=== PATIENT | female | born 1980 | race Caucasian/White ===

== ENCOUNTER 2020-09-12 08:18 | Outpatient (REF) | payer MEDICAID, SELFPAY ==
--- NOTE | 2020-09-12 08:24 | EMG_ITS ---
Bilateral median and ulnar motor and sensory studies were performed. Bilateral radial sensory studies were performed and paraspinal muscles were tested with a needle. 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 MD PAIGE Tovar/ANASTASIA / [phone]
== END 2020-09-12 08:19 | disposition home or self-care (01) ==
LOC: HO.NEURO 08:18
PROVIDERS: PCP Internal Medicine; Visit Provider Internal Medicine
DX: G56.03 Carpal tunnel syndrome, bilateral upper limbs (principal)
CPT/HCPCS: 95860; 95886; 95911

== ENCOUNTER → 2020-11-20 11:20 | Outpatient (BNVA) | payer MEDICAID, SELFPAY | PROVIDERS: Visit Provider Orthopaedic Surgery | DX: G56.02 Carpal tunnel syndrome, left upper limb (principal); G56.01 Carpal tunnel syndrome, right upper limb | CPT/HCPCS: 99202 ==

== ENCOUNTER 2020-12-17 12:50 | Day surgery (SDC) | payer MEDICAID, SELFPAY ==
[2020-12-17 12:59] VITALS: BP 108/79; PULSE 88; RESP 16; TEMP 36.8; O2SAT 99
[2020-12-17 13:00] VITALS: BMI 23.3
[2020-12-17 14:40] VITALS: BP 110/72; PULSE 85; RESP 18; TEMP 36.5; O2SAT 96
--- NOTE | 2020-12-17 14:43 | MHC.SHP ---
Pre-Procedural Eval Section A Date of Service: 12/17/20 Section B Chief Complaint: carpal tunnel Allergies: Allergies Allergy/AdvReac Type Severity Reaction Status Date / Time penicillin V Allergy Unknown breathing Verified 11/20/20 11:49 problems and rash Penicillins [PENICILLINS] Allergy Unknown RASH Verified 11/20/20 11:49 Plan I have reviewed the history and physical and performed a pertinent physical examination on my patient. No changes have occurred unless specified.
--- NOTE | 2020-12-17 14:43 | W.PM.OPN ---
Operative Note Operative Note Date of Service: 12/17/20 Narrative: Preop diagnosis: 1. left Carpal tunnel syndrome Postop diagnosis: same Procedure: 1. left Carpal tunnel release Surgeon: Shelly Dangelo MD Anesthesia: local block using 1% lidocaine with epinephrine Findings: Thickened transverse carpal ligament. EBL: Less than 5 mL Specimens: None Complications: None Disposition: Brought to recovery room in stable condition Plan: Follow-up for 7-10 days for wound check and suture removal Indications: The patient is 40 years old, with left carpal tunnel syndrome that has been unresponsive to nonoperative management. The risks and benefits of operative treatment including but not limited to risk of damage to blood vessels, nerves, tendons, infection, persistent pain, persistent symptoms, or possible need for additional surgery were discussed with the patient and the patient wishes to proceed with surgery. Procedure: Once consent was obtained a local block was performed using a combination of 1% lidocaine with epinephrine. The patient was then brought back to the operating suite and placed on the operative table in supine position. A tourniquet was applied to the proximal aspect of the left upper extremity and the limb was prepped and draped in a standard surgical fashion. Once assured that we had a good block, a 1.5 cm longitudinal incision was made centered over the carpal tunnel. The incision was made through the skin to the subcutaneous tissues using a #15 blade. Dissection was made down to the level of the transverse carpal ligament with care being taken to protect the palmar cutaneous nerve. Once the transverse carpal ligament was clearly visualized, a longitudinal incision was made in the transverse carpal ligament 1st using a #15 blade, then using tenotomy scissors under direct visualization. Care was taken to look for and protect the motor branch of the median nerve when seen in this area. Once satisfied with our carpal tunnel release the wound was copiously irrigated with normal saline and hemostasis was obtained with a brief period of local pressure. The skin edges were reapproximated with some 5.0 nylon suture material and a sterile dressing was applied. The patient appears to have tolerated the procedure well and with no complications. All digits were well vascularized at the conclusion of the case.[email or web address]
== END 2020-12-17 14:53 | disposition home or self-care (01) ==
PROVIDERS: Visit Provider Orthopaedic Surgery
PROC: (CPT 64721; principal; 2020-12-17 14:30)
DX: G56.02 Carpal tunnel syndrome, left upper limb (principal); I10 Essential (primary) hypertension; F41.9 Anxiety disorder, unspecified; F17.210 Nicotine dependence, cigarettes, uncomplicated; Z88.0 Allergy status to penicillin
CPT/HCPCS: 64721

== ENCOUNTER → 2021-01-01 12:48 | Outpatient (BNVA) | payer MEDICAID, SELFPAY | PROVIDERS: Visit Provider Orthopaedic Surgery | DX: G56.03 Carpal tunnel syndrome, bilateral upper limbs (principal) | CPT/HCPCS: 99212 ==

== ENCOUNTER 2021-12-11 14:16 | Outpatient (REF) | payer MEDICAID, SELFPAY ==
[2021-12-18 06:46] LABS: HPV mRNA E6/E7 rflx Not Detected (Not Detected)
== END 2021-12-11 14:17 | disposition home or self-care (01) ==
LOC: HO.LAB 14:16
PROVIDERS: Visit Provider Obstetrics & Gynecology
DX: Z01.419 Encounter for gynecological examination (general) (routine) without abnormal findings (principal); Z11.51 Encounter for screening for human papillomavirus (HPV)
CPT/HCPCS: 87624; 88142

== ENCOUNTER 2021-12-29 14:51 | Outpatient (REF) | payer MEDICAID, SELFPAY ==
--- NOTE | ~2021-12-29 | MM_ITS ---
EXAMINATION: MM DIAGNOSTIC DIGITAL BREAST TOMOSYNTHESIS, BILATERAL US DIAGNOSTIC ULTRASOUND BREAST, RIGHT CLINICAL INFORMATION: 41-year-old with right mastodynia and pea-sized palpable area for approximately 7 months. No prior breast imaging. Family history breast cancer, paternal aunt. The lifetime risk of breast cancer based on the Tyrer-Cuzick Model is 14%. COMPARISON: None (current study represents initial baseline exam). TECHNIQUE: Digital breast tomosynthesis is performed in both the craniocaudal and mediolateral oblique views along with computer-aided detection (CAD). Synthesized 2D images are generated from the tomosynthesis. Ultrasound right breast is targeted to the areas of clinical concern. Patient is able to point to the areas at time of imaging. Grayscale imaging and color Doppler are performed without and with harmonics. FINDINGS: There are scattered areas of fibroglandular density (ACR BI-RADS breast composition Category b). There is no mammographic correlate for patient's symptoms. No significant mass or architectural abnormality. No skin thickening or coarsening of the Ye's ligaments. No abnormal calcifications. The axilla are unremarkable. Skin contours are smooth. Ultrasound demonstrates no cystic or solid mass, architectural abnormality, or focal duct ectasia. No skin thickening, intradermal lesion, or edema tracking in soft tissue planes. Results are discussed with the patient at time of visit. MM/MM tomosynthesis diagnostic BI IMPRESSION: -No mammographic evidence of malignancy or inflammatory changes. -Unremarkable targeted right breast ultrasound. ASSESSMENT: BI-RADS 1: Negative RECOMMENDATION: 1. Patient should be managed based on the clinical impression. If clinically indicated, further evaluation may be considered with surgical consult. Decision to proceed with biopsy should be based on clinical grounds and degree of clinical concern. 2. Otherwise, routine annual screening mammography. This patient's information was entered into a reminder system with a target due date for their next mammogram.
== END 2021-12-29 14:52 | disposition home or self-care (01) ==
LOC: HO.MAMMO 14:51
PROVIDERS: Visit Provider Obstetrics & Gynecology
DX: N63.11 Unspecified lump in the right breast, upper outer quadrant (principal)
CPT/HCPCS: 76642; 77062; 77066

== ENCOUNTER 2023-01-14 15:55 | Outpatient (REF) | payer MEDICAID, SELFPAY ==
[2023-01-14 18:42] LABS: HCG Quantitative < 2 mIU/mL
== END 2023-01-14 15:56 | disposition home or self-care (01) ==
LOC: HO.CHCLDS 15:55
PROVIDERS: Visit Provider Pediatrics
DX: N92.6 Irregular menstruation, unspecified (principal)
CPT/HCPCS: 36415; 84702

== ENCOUNTER 2024-04-18 14:54 | Outpatient (REF) | payer MEDICAID, SELFPAY ==
[2024-04-20 08:07] LABS: ~HepC Num1 0.09 S/CO (0.00-0.79); ~Hepatitis C Antibody Nonreactive (Nonreactive)
== END 2024-04-18 14:55 | disposition home or self-care (01) ==
LOC: HO.CHCLDS 14:54
PROVIDERS: Visit Provider Internal Medicine
DX: L43.9 Lichen planus, unspecified (principal)
CPT/HCPCS: 36415; 86803

== ENCOUNTER 2024-10-03 15:09 | Outpatient (REF) | payer MEDICAID, SELFPAY ==
[2024-10-03 16:07] LABS: Appearance Urine Clear; Color Urine Yellow; Glucose Urine UA Negative (Negative); Leukocyte Esterase Urine Negative (Negative); Nitrite Urine Negative (Negative); Specific Gravity - Urine 1.015 (1.005-1.025); Urine Blood Negative (Negative); Urine Ketones Negative (Negative); Urine Protein Negative (Neg-Trace)
[2024-10-03 16:09] LABS: MANUAL DIFF FLAG NO
[2024-10-03 16:12] LABS: Bacteria Urine None Seen (None Seen); Hyaline Casts Urine 0-2 /LPF (0-2); RBC Urine 0-2 /HPF (0-2); Squamous Epithelial Cell Urine 0-2 /HPF (0-2); WBC Urine 0-5 /HPF (0-5)
[2024-10-03 16:29] LABS: Basophils Absolute Auto 0.1 X10*3/uL (0.0-0.2); Basophils Percent Auto 1.9 % (0-2); Eosinophils Absolute Auto 0.2 X10*3/uL (0.0-0.4); Eosinophils Percent Auto 4.1 % (0-4); Hematocrit 32.7 % (37.0-47.0); Hemoglobin 10.8 g/dl (12.0-16.0); Imm Gran Abs Auto 0.02 X10*3/uL (0.00-0.03); Imm Gran Pct Auto 0.4 % (0.0-0.4); Lymphocytes Absolute Auto 1.7 X10*3/uL (1.2-4.9); Lymphocytes Percent Auto 33.6 % (20-40); Mean Corpuscular Hemoglobin 28.2 pg (27.0-33.0); Mean Corpuscular Volume 85.4 fL (80.0-98.0); Mean Platelet Volume 9.9 fL (9.4-12.3); Monocytes Absolute Auto 0.3 X10*3/uL (0.1-1.2); Monocytes Percent Auto 6.4 % (2-11); Neutrophils Absolute Auto 2.8 x10*3/uL (2.0-8.3); Neutrophils Percent Auto 53.6 % (45-73); Platelet Count 353 X10*3/uL (160-400); Red Blood Count 3.83 X10*6/uL (4.20-5.50); Red Cell Distribution Width 13.2 % (11.0-16.0); White Blood Count 5.2 X10*3/uL (4.8-10.8)
[2024-10-03 16:32] LABS: Estimated Average Glucose 103 mg/dL; Hemoglobin A1C 95.7065 umol/L; Hemoglobin A1c % 5.2 % (<6.0); Total Hemoglobin (HGBA1C) 2868.7908 umol/L
[2024-10-03 17:10] LABS: Rheumatoid Factor < 13.0 IU/mL (<15.0)
[2024-10-03 17:49] LABS: Anion Gap 10 (12-20); Blood Urea Nitrogen 14 mg/dL (9-16); Calcium 8.5 mg/dL (8.4-10.2); Carbon Dioxide 23 mmol/L (22-29); Chloride 110 mmol/L (96-108); Estimated Glomerular Filt Rate 55; Glucose Random 89 mg/dL (60-115); Potassium 3.8 mmol/L (3.3-5.1); Sodium 139 mmol/L (135-145)
[2024-10-03 18:11] LABS: HCG Quantitative < 2 mIU/mL; TSH reflex Free T4 1.13 uIU/mL (0.32-4.0)
--- OUTSIDE RECORDS SUMMARY | 2024-10-03 18:28 | XMS_ITS | Encounter Summary ---
Author Organization [employer] Address [address] [facility] [address] [place] [address] Care Team Providers Care Assistant Maintenance Manager Name Role Phone Scott Sánchez MD Primary Care Prov ider Reason for Visit * Reason Onset Date Comments Nurse Triage 06/27/2024 Encounter Details Date Type Department Care Team (Late st Contact Info) Description 06/27/2024 Telephone [facility] [address] [place] [address] Scott Sánchez MD [address] [place] [address] Nurse Triage Social History Tobacco Use Types Packs/Day Years Used Date Smoking Tobacco: Every Day Cigarettes 0.5 25 Passive Smoke Exposure: Current Smokeless Tobacco: Never Alcohol Use Standard Drinks/Week Comments Not Currently 0 (1 standard drink = 0.6 oz pur e alcohol) Depression Answer Date Recorded Patient Health Questionnaire-9 Score 17 08/24/2023 Patient Health Questionnaire-9 Score 17 08/24/2023 Last PHQ-9: Questionnaire Data Not on file 0 08/24/2023 Housing Stability Answer Date Recorded What is your housing situation today? I have fadi karen 04/09/[address] you li ve. Do you have problems with any of the following? None of the above 04/09/2023 Food Insecurity Answer Date Recorded Within the past 12 months, y ou worried that your food would run out before you got money to buy more: Never True 04/09/2023 Within the past 12 months,th e food you bought just didn't last and you didn't have enough money to get more: Never True Transportation Answer Date Recorded In the past 12 months, has l ack of transportation kept you from medical appts, meetings, work or from getting things needed for daily living? No 04/09/2023 Utilities Answer Date Recorded In the past 12 months, has t he electric, gas, oil or water company threatened to shut off services in your home? No 04/09/2023 Depression Answer Date Recorded Patient Health Questionnaire-2 Score 6 08/24/2023 Comments Unknown Sex and Gender Information Value Date Recorded Sex Assigned at Female 04/20/2022 10:29 AM EDT Legal Sex Female 10:29 AM EDT Gender Identity Female 04/20/2022 10:29 AM EDT Sexual Orientation Straight 04/20/2022 10 :29 AM EDT documented as of this encounter Miscellaneous Notes * Telephone Encounter - Kasia Gómez - 06/28/2024 11:56 AM EST Tc from pt returning call. 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 documented in this encounter Plan of Treatment Upcoming Encounters Date Type Department Care Team (Late st Contact Info) Description 11/07/2024 11:30 AM EDT Office Visit [facility] [address] [place] [address] Hill Elise MD [address] [place] [address] documented as of this encounter Visit Diagnoses Not on filedocumented in this encounter Additional Health Concerns Assessment Noted Time PHQ-9 Depression Total Score: 17 024 11:25 AM EST documented as of this encounter Care Teams Assistant Maintenance Manager Relationship Specialty Start Date End Date Scott Sánchez MD [address] [place] [phone] PCP - General Internal Medicine 11/19/19 documented as of this encounter
--- OUTSIDE RECORDS SUMMARY | 2024-10-03 18:28 | XMS_ITS | Encounter Summary ---
Author Organization [employer] Address [address] 7[address] [place] [address] Care Team Providers Care Stereotype Caster Name Role Phone Scott Sánchez MD Primary Care Prov ider Encounter Details Date Type Department Care Team (Late st Contact Info) Description 10/03/2024 2:40 PM EDT Office Visit [facility] [address] [place] [address] [phone] Kayla Hogan MD [address] [place], [place] [phone] Rash (Primary Dx) Social History Tobacco Use Types Packs/Day Years [...] your housing situation today? I have fadi jones 04/09/[address] you li [...] AM EDT documented as of this encounter Last Filed Vital Signs Vital Sign Reading Time Taken Comments Blood Pressure 123/79 10/03/2024 2:48 PM EDT Pulse 90 10/03/2024 2:48 PM EDT Temperature 36.2 ??C (97.1 ??F) 10/03/2024 2:48 PM ED T Respiratory Rate 19 10/03/2024 2:48 PM EDT Oxygen Saturation 98% 10/03/2024 2:48 PM EDT Inhaled Oxygen Concentration - - Weight 65.4 kg (144 lb 3.2 oz) 10/03/2024 2:48 P M EDT Height 165.1 cm (5' 5 ) 10/03/2024 2:48 PM EDT Body Mass Index 24 10/03/2024 2:48 PM EDT documented in this encounter Progress Notes * Kayla Hogan MD - 10/03/2024 2:40 PM EDT Images from the original note were not included. Subjective Patient ID: Myra Robles is a 44 y.o. female with past medical history of CTS and chronic back pain who presents to walk in clinic for No chief complaint on file.. Per note from 09/06/24, Patient saw [facility] D[facility] 03/2024 with suspected lichen planus versus nummular eczema. She was treated with Kenalog 0.1% ointment. Referred back to dermatology 09/07/23 Has appt. with Dermatology 11/07/24. Pt reports the cream she was prescribed (betamethasone dipropionate 0.05 % cream) was helping her rash was improving, but has gotten worse. She notes the rash started in 03/2024, and has gone away but keeps returning. Pt denies any hx of arthritis but says she feels like she has it now. Reports aches and pains in her bones. Review of Systems Constitutional: Negative for fatigue, fever and unexpected weight change. Respiratory: Negative for cough. Cardiovascular: Negative for chest pain. Gastrointestinal: Negative for abdominal pain. Genitourinary: Negative for difficulty urinating. Skin: Positive for rash. Objective Visit Vitals BP 123/79 Pulse 90 Temp 97.1 ??F (36.2 ??C) (Temporal) Resp 19 Ht 5' 5 (1.651 m) Wt 144 lb 3.2 oz (65.4 kg) SpO2 98% BMI 24.00 kg/m?? Smoking Status Every Day BSA 1.73 m?? Physical Exam Constitutional: Appearance: Normal appearance. Cardiovascular: Rate and Rhythm: Normal rate and regular rhythm. Heart sounds: Normal heart sounds. Pulmonary: Effort: Pulmonary effort is normal. Breath sounds: Normal breath sounds. Skin: Findings: Rash (Scattered papules, well demarcated. See image in chart.) present. Neurological: General: No focal deficit present. Mental Status: She is alert. Psychiatric: Behavior: Behavior normal. Problem List Items Addressed This Visit Rash - Primary Reoccurring rash since 03/2024. See image in chart. Has been treated with topical steroids that pt reports has helped, but this flare seems worse. Shared decision making will trial oral steroid. Discussed risks of steroid use. -Prescribed predniSONE (Deltasone) 20 MG Take 1 tablet (20 mg) by mouth 3 times daily for 3 days, THEN 1 tablet (20 mg) 2 times daily for 3 days, THEN 1 tablet (20 mg) Once per day for 3 days. 10/03/24 Relevant Medications predniSONE (Deltasone) 20 MG tablet Other Relevant Orders HIV-1/2 Antigen and Antibodies, Fourth Generation, with Reflexes RPR (Monitor) with Reflex to Titer Rheumatoid Factor VINCE Screen,IFA, with Reflex to Titer and Pattern -No evidence of acute disease process. Suspect lichen planus, nummular eczema, atypical psoriasis, arthritis, etc. Symptoms mild. -Will treat with short course of steroids. -ER precautions discussed. -Seek medical attention for worsening symptoms. I, Mis Claire, am serving as a scribe to document services personally performed by Dr. Griffith, based on the patient's response to questions by provider and providers statements to me. documented in this encounter Miscellaneous Notes * Assessment & Plan Note - Mis Claire - 10/03/2024 3:03 PM EDTAssociated Problem(s): Rash Reoccurring rash since 03/2024. See image in chart. Has been treated with topical steroids that pt reports has helped, but this flare seems worse. Shared decision making will trial oral steroid. Discussed risks of steroid use. -Prescribed predniSONE (Deltasone) 20 MG Take 1 tablet (20 mg) by mouth 3 times daily for 3 days, THEN 1 tablet (20 mg) 2 times daily for 3 days, THEN 1 tablet (20 mg) Once per day for 3 days. 10/03/24 documented in this encounter Plan of Treatment Upcoming Encounters Date Type Department Care Team (Late st Contact Info) Description 11/07/2024 11:30 AM EDT Office Visit [facility] MED [facility] PED[facility] [address] [place] [address] Hill Elise MD [address] [place] [address] Scheduled Orders Name Type Priority Associated Diagnoses Orde r Schedule HIV-1/2 Antigen and Antibodies, Fourth Generation, with Reflexes Lab Routine Rash Expected: 10/03/2024 (Approximate), Expires: 10/03/2025 RPR (Monitor) with Reflex to??Titer Lab Routine Rash Expected: 10/03/2024, Expires: 10/03/2025 VINCE Screen,IFA, with Reflex to Titer and Pattern Lab Routine Rash Expected: 10/03/2024 (Approximate), Expires: 10/03/2025 documented as of this encounter Procedures Procedure Name Priority Date/Time Associated Diagnosis Comments RHEUMATOID FACTOR Routine 10/03/2024 3:1 3 PM EDT Rash documented in this encounter Results * Rheumatoid Factor (10/03/2024 3:13 PM EDT) Rheumatoid Factor <13.0 <15.0 IU/mL [facility] Blood Venous blood specimen / Unknown 10/03/2024 3:13 PM EDT 10/03/2024 4:04 PM EDT us Kayla Hogan MD LAB BLOOD ORDERABLES Final Result [facility] [address] [place] [address] [phone] documented in this encounter Visit Diagnoses Diagnosis Rash- Primary Rash and other nonspecific skin eruption documented in this encounter Additional Health Concerns Assessment Noted Time PHQ-9 Depression Total Score: 17 024 11:25 AM EST documented as of this encounter Care Teams Stereotype Caster Relationship Specialty Start Date End Date Scott Sánchez MD [address] [place] [id number] PCP - General Internal Medicine 11/19/19 documented as of this encounter
--- OUTSIDE RECORDS SUMMARY | 2024-10-03 18:28 | XMS_ITS | Encounter Summary ---
Author Organization [employer] Address [address] [facility] [address] [place] [address] Care Team Providers Care Spud Driller Name Role Phone Scott Sánchez MD Primary Care Prov ider Reason for Visit * Reason Onset Date Comments Nurse Triage 05/29/2024 Encounter Details Date Type Department Care Team (Late st Contact Info) Description 05/29/2024 Telephone [facility] MED[facility] [address] [place] [address] Scott Sánchez MD [address] [place] [address] Nurse Triage Social History Tobacco Use Types [...] encounter Miscellaneous Notes * Telephone Encounter - Alexandria Carter RN - 05/29/2024 4:46 PM EST Triage call Pt reports wide spread rash. Pt was seen in office 04/15/24 for dx of lichen planus. Ptreports rash has spread to left arm, stomach, neck legs. Itchy, bumpy, red rash neg for drainage. Pt has used all triamcinalone 0.1% prescribed at visit. 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 ASK apt with Dr. Rosales 06/01/24 @ 930am. Insurance is verified as active prior to booking. Pt agreed with disposition. Protocol Used: Rash or Redness - Widespread (Adult) Protocol-Based Disposition: See in Office or Video Visit Today or Tomorrow Override (Final) Disposition: See in Office or Video Visit within 3 Days Override Reason: Other Video visit not offered Positive Triage Question: * Mild widespread rash (Exception: Heat rash lasting 3 days or less.) * All higher-acuity triage questions were negative Care Advice Discussed: * Reasons To Call Back - Rash becomes purple or blood-colored or blister-like - Fever occurs or severe itching - You become worse * Telephone Encounter - Preet Villarreal - 05/29/2024 4:28 PM EST Symptom: Rash or Redness - Widespread Outcome: Schedule a same-day appointment or talk to a nurse or provider today Reason: Caller denied all higher acuity questions The caller accepted this outcome. documented in this encounter Plan of Treatment Upcoming Encounters Date Type Department Care Team (Late st Contact Info) Description 11/07/2024 11:30 AM EDT Office Visit [facility] [address] [place] [address] Hill Elise MD [address] [place] [address] documented as of this encounter Visit Diagnoses Not on filedocumented in this encounter Additional Health Concerns Assessment Noted Time PHQ-9 Depression Total Score: 17 024 11:25 AM EST documented as of this encounter Care Teams Spud Driller Relationship Specialty Start Date End Date Scott Sánchez MD [address] [place] [address] PCP - General Internal Medicine 11/19/19 documented as of this encounter
--- OUTSIDE RECORDS SUMMARY | 2024-10-03 18:28 | XMS_ITS | Clinical Summary ---
Author Organization [facility] Address [address] [place] [address] Phone Care Team Providers Care Contracts Attorney Name Role Phone [employer] Primary Care Provider [phone] [facility] Unavailable [phone] Reason for Visit and Chief Complaint Established Patient Plan of Treatment Pending Tests Order Diagnosis Results Due Ordering P rovider Follow Up - Return to School / Work Note Buffy Wooten PA-C Last Documented On 3 9:08AM ; [facility] Follow Up - Appointment 1 Month Oth frac tures of lower end of left radius, init for clos fx 08/24/22 Buffy Wooten PA-C Last Documented On 3 9:07AM ; [facility] In House X-Rays - X-Rays Wrist, left, 3 views ([id number]) Oth fractures of lower end of left radius, init for clos fx 08/26/22 Buffy Wooten PA-C Last Documented On 3 9:07AM ; [facility] Assessments Includes: Assessments from this encounter No Assessments Recorded Medical Equipment - Implanted Devices Includes: Current Devices No Medical Equipment Recorded Medications Includes: Medications discussed during this encounter and other current Medications Current Medications (continue as prescribed) Ibuprofen Oral Tablet 10/29/2022 Provider: Diagnosis: Last Documented On 3 7:58AM By Bhupinder Yadav ; [facility] traMADol HCl 50 MG Oral Tablet 08/13/2022 Provider: Diagnosis: Last Documented On 8:16AM By Bhupinder Yadav ; [facility] Medications Administered Includes: Administered Medications from this encounter No Administered Medications Recorded Vital Signs Includes: Vital Signs from this encounter Vital Name 08/24/2022 08:53A Blood Pressure Sitting (mmHg) 118/70 Pulse Rate-Sitting (bpm) 98 Temp-Temporal 97.2 Height (in) 65 Weight (lb) 130 Body Mass Index 21.6 Body Surface Area 1.6 Oxygen Saturation (%) 99 Last Documented: On 08/24/2022 8:53AM ; [facility] Results Includes: Results discussed during this encounter No Results Recorded For Specified Dates History of Present Illness Includes: History of Present Illness from this encounter No History of Present Illness Recorded Social History No Social History Recorded - Smoking Status Unknown Medical History Includes: Medical History addressed during this encounter No Medical History Recorded Family History Includes: Family History addressed during this encounter No Family History Recorded Review of Systems Includes: Review of Systems from this encounter No Review of Systems Recorded Mental Status Includes: Mental Status from this encounter No Mental Status Recorded Functional Status Includes: Functional Status from this encounter No Functional Status Recorded Physical Exam Includes: Physical Exam from this encounter Encounters Encounter Provider Location Date Check-In Time Check-Out Time Diagnosis Established Patient Buffy Wooten PA-C [facility] 08/25/19 8:40AM 9:04AM Insurance Includes: Active Insurance Policies Plan Name Member ID Group # Subscriber Relationship Effect enrique Dates 1 - Health Safety [facility] [id number] Myra Jacques Self Clinical Notes Includes: Clinical Notes from this encounter * Progress note Date Encounter Last Documented by 08/24/2022 Established Patient Lalo santana on 08/24/2022; 9:08 AM, Buffy Wooten PA-C; [facility] Reason For Visit Chief complaint: Left distal radius fracture Date of injury: 08/10/2022 History of Present Illness: Patient is a pleasant [id number] 42-year-old female who fell onto the dorsal aspect of her wrist while rollerblading. She was evaluated in the emergency room where x-rays were obtained showing a nondisplaced fracture of the distal radius. She was placed in a volar splint and advised to follow-up with orthopedics. She was last seen in the office on 08/13/2022 at which time a cast was applied. She does report some persistent intermittent pain at the fracture site otherwise she denies numbness or tingling or cast irritation. Physical exam: Cast in place on the left wrist. Motor and sensory intact throughout the radial, ulnar and median nerve distributions. Fingertips are warm and well-perfused. Imaging: X-ray of the left wrist reviewed from 08/10/2022 showing a nondisplaced intra-articular fracture of the distal radius. These were compared to x-rays of the left wrist performed today which show stable positioning of the fracture Impression: Nondisplaced fracture of the distal radius Plan: - Weightbearing: Strict nonweightbearing left upper extremity - Activity/Therapy: Immobilization, Work note provided with restrictions, Caution to avoid reinjury - Dressing/DME: Continue short arm cast - Pain control: Elevate affected extremity; apply ice to affected area; over the counter pain medication such as Tylenol or NSAID's. Rx for ibuprofen provided - Follow up: 4 weeks at which time we will likely transition to a removable splint and initiate some gentle exercise - X-ray at follow up: X-ray left wrist out of cast Case discussed with Dr Gaines Current Medication - traMADol HCl 50 MG Oral Tablet 0 days, 0 refills Physical Findings - Vitals taken 08/24/2022 08:53 am BP-Sitting 118/70 mmHg Pulse Rate-Sitting 98 bpm Temp-Temporal 97.2 F Height 65 in Weight 130 lbs Body Mass Index 21.6 kg/m2 Body Surface Area 1.6 m2 Oxygen Saturation 99 % Plan StartCited - Oth fractures of lower end of left radius, init for clos fx Follow Up/Appointment: 1 Month In House X-Rays/X-Rays: Wrist, left, 3 views ([id number]) EndCited StartCited - Other Follow Up/Return to: School / Work Note EndCited
--- OUTSIDE RECORDS SUMMARY | 2024-10-03 18:29 | XMS_ITS ---
Author Organization [facility] Address [address] [place] [address] Phone Care Team Providers Care Painting Manager Name Role Phone Dayron Guo Primary Care Provider [phone] [facility] Unavailable [phone] Plan of Treatment No Plan of Treatment Recorded Assessments Includes: Assessments for all patient encounters No Assessments Recorded Medical Equipment - Implanted Devices Includes: Current and historical Devices No Medical Equipment Recorded Medications Includes: Current and historical Medications Current Medications (continue as prescribed) Ibuprofen Oral Tablet 10/29/2022 Provider: Diagnosis: Last Documented On 3 7:58AM By Bhupinder Yadav ; [facility] traMADol HCl 50 MG Oral Tablet 08/13/2022 Provider: Diagnosis: Last Documented On 3 8:16AM By Bhupinder Yadav ; [facility] Medications Administered Includes: Administered Medications in patient's chart No Administered Medications Recorded Results Includes: Results from 10/04/2023 through 10/03/2024 No Results Recorded For Specified Dates History of Present Illness History of Present Illness not supported for this document type No History of Present Illness Recorded Social History No Social History Recorded - Smoking Status Unknown Medical History Includes: Medical History in patient's chart No Medical History Recorded Family History Includes: Family History in patient's chart No Family History Recorded Review of Systems Review of Systems not supported for this document type No Review of Systems Recorded Mental Status No Mental Status Recorded Functional Status No Functional Status Recorded Physical Exam Physical Exam not supported for this document type No Physical Exam Recorded Insurance Includes: Active Insurance Policies Plan Name Member ID Group # Subscriber Relationship Effect enrique Dates 1 - Health Safety Net - [facility] [place] [id number] Myra Jacques Self Clinical Notes Includes: Signed Clinical Notes starting from 05/31/2022 No Clinical Notes Recorded
--- OUTSIDE RECORDS SUMMARY | 2024-10-03 18:29 | XMS_ITS | Encounter Summary ---
Author Organization [employer] Address [address] [place] [address] Care Team Providers Care Marking Clerk Name Role Phone Scott Sánchez MD Primary Care Prov ider Reason for Visit * Reason Comments Med Refill Encounter Details Date Type Department Care Team (Late st Contact Info) Description 11/30/2023 Refill [facility] MEDICINE [address] [place] [address] Denilson Pennington FNP Posttraumatic stress disorder Social History Tobacco Use Types Packs/Day Years [...] AM EDT documented as of this encounter Plan of Treatment Upcoming Encounters Date Type Department Care Team ([facility] st Contact Info) Description 11/07/2024 11:30 AM EDT Office Visit [facility] MED & PEDS [address] [place] [address] Hill Elise MD [address] [place] [address] documented as of this encounter Visit Diagnoses Diagnosis Posttraumatic stress disorder documented in this encounter Additional Health Concerns Assessment Noted Time PHQ-9 Depression Total Score: 17 024 11:25 AM EST documented as of this encounter Care Teams Marking Clerk Relationship Specialty Start Date End Date Scott Sánchez MD [address] [place] [address] PCP - General Internal Medicine 11/19/19 documented as of this encounter
--- OUTSIDE RECORDS SUMMARY | 2024-10-03 18:29 | XMS_ITS | Clinical Summary ---
Author Organization [facility] Address [address] [place] [address] Phone Care Team Providers Care Keypuncher Name Role Phone Dayron Guo Group Primary Care Provider [phone] [facility] Un[facility] [phone] Reason for Visit and Chief Complaint Established Patient Plan of Treatment 1. Left short arm fiberglass cast removed in office today. 2. Given a removable Velcro splint. 3. Begin OT/PT for range of motion and strengthening left wrist. 4. Return to office for final visit in 1 month - Last Documented On 09/24/2022 9:05AM ; [facility] Pending Tests Order Diagnosis Results Due Ordering Hernandez solomon Follow Up - Return to School / Work Note Moose Wheat MD Last Documented On 3 9:05AM ; [facility] Follow Up - Appointment 1 Month Colles' fx left radius, subs for clos fx w routn heal 09/24/22 Moose Wheat MD Last Documented On 3 9:05AM ; [facility] Assessments Includes: Assessments from this encounter No Assessments Recorded Medical Equipment - Implanted Devices Includes: Current Devices No Medical Equipment Recorded Medications Includes: Medications discussed during this encounter and other current Medications Current Medications (continue as prescribed) Ibuprofen Oral Tablet 10/29/2022 Provider: Diagnosis: Last Documented On 3 7:58AM By Bhupinder Yadav ; [facility] traMADol HCl 50 MG Oral Tablet 08/13/2022 Provider: Diagnosis: Last Documented On 8:16AM By Bhupinder Yadav ; [facility] Medications Administered Includes: Administered Medications from this encounter No Administered Medications Recorded Vital Signs Includes: Vital Signs from this encounter Vital Name 09/24/2022 08:58A Blood Pressure Sitting (mmHg) 117/78 Pulse Rate-Sitting (bpm) 54 Temp-Temporal 97.2 Height (in) 65 Weight (lb) 130 Body Mass Index 21.6 Body Surface Area 1.6 Oxygen Saturation (%) 98 Last Documented: On 09/24/2022 8:58AM ; [facility] Results Includes: Results discussed during this encounter No Results Recorded For Specified Dates History of Present Illness Includes: History of Present Illness from this encounter HPI The patient is a 42-year-old female. She injured her left wrist while rollerblading on 08/10/2022. X-rays showed a minimally displaced fracture involving the distal left radius. She was placed in a short arm cast on 08/13/2022. Its been roughly 6 weeks now since the injury. She comes in today in the cast. Social History No Social History Recorded - Smoking Status Unknown Medical History Includes: Medical History addressed during this encounter No Medical History Recorded Family History Includes: Family History addressed during this encounter No Family History Recorded Review of Systems Includes: Review of Systems from this encounter 1. 6-week old fracture distal left radius with minimal displacement 2. Considerable healing seen on x-rays today. Mental Status Includes: Mental Status from this encounter No Mental Status Recorded Functional Status Includes: Functional Status from this encounter No Functional Status Recorded Physical Exam Includes: Physical Exam from this encounter Encounters Encounter Provider Location Date Check-In Time Check-Out Time Diagnosis Established Patient Moose Wheat [facility] 8:40AM 9:05AM Insurance Includes: Active Insurance Policies Plan Name Member ID Group # Subscriber Relationship Effect enrique Dates 1 - Health Safety Net - [facility] [id number] Myra Hanson Clinical Notes Includes: Clinical Notes from this encounter * Progress note Date Encounter Last Documented by 09/24/2022 Established Patient Lalo santana on 09/24/2022; 9:05 AM, Moose Wheat MD; [facility], Chief Complaint Minimally displaced fracture distal left radius History of Present Illness The patient is a 42-year-old female. She injured her left wrist while rollerblading on 08/10/2022. X-rays showed a minimally displaced fracture involving the distal left radius. She was placed in a short arm cast on 08/13/2022. Its been roughly 6 weeks now since the injury. She comes in today in the cast. Current Medication - traMADol HCl 50 MG Oral Tablet 0 days, 0 refills Physical Findings - Vitals taken 09/24/2022 08:58 am BP-Sitting 117/78 mmHg Pulse Rate-Sitting 54 bpm Temp-Temporal 97.2 F Height 65 in Weight 130 lbs Body Mass Index 21.6 kg/m2 Body Surface Area 1.6 m2 Oxygen Saturation 98 % Left short arm fiberglass cast removed in office today. Minimal tenderness left wrist. Good functional motion left wrist. Neurovascular status left upper extremity intact. OB Ultrasound X-rays were taken of her left wrist in the office today. X-ray shows a minimally displaced fracture involving the distal aspect of the left radius with considerable healing. Position has remained stable since time of injury. User Defined 4 1. 6-week old fracture distal left radius with minimal displacement 2. Considerable healing seen on x-rays today. Plan StartCited - Randall' fx left radius, subs for yoel fx w routn heal Follow Up/Appointment: 1 Month EndCited StartCited - Other Follow Up/Return to: School / Work Note EndCited 1. Left short arm fiberglass cast removed in office today. 2. Given a removable Velcro splint. 3. Begin OT/PT for range of motion and strengthening left wrist. 4. Return to office for final visit in 1 month
--- OUTSIDE RECORDS SUMMARY | 2024-10-03 18:29 | XMS_ITS | Encounter Summary ---
Author Organization [employer] Address [address] [place] [address] Care Team Providers Care Geospatial Imagery Intelligence Analyst Name Role Phone Scott Sánchez MD Primary Care Prov ider Reason for Visit * Reason Comments Med Refill Encounter Details Date Type Department Care Team (Late st Contact Info) Description 09/20/2024 Refill [facility] CHC MED & PEDS [address] [place] [address] [facility] [address] [place] [address] Lichen planus Social History Tobacco Use Types Packs/Day Years [...] Description 11/07/2024 11:30 AM EDT Office Visit [facility] CHC MED & PEDS [address] [place] [address] Hill Elise MD [address] [place] [address] documented as of this encounter Visit Diagnoses Diagnosis Lichen planus documented in this encounter Additional Health Concerns Assessment Noted Time PHQ-9 Depression Total Score: 17 024 11:25 AM EST documented as of this encounter Care Teams Geospatial Imagery Intelligence Analyst Relationship Specialty Start Date End Date Scott Sánchez MD [address] [place] [address] PCP - General Internal Medicine 11/19/19 documented as of this encounter
--- OUTSIDE RECORDS SUMMARY | 2024-10-03 18:29 | XMS_ITS | Clinical Summary ---
Author Organization [facility] Address [address] [place] [address] Phone Care Team Providers Care Staffing Assistant Name Role Phone Dayron Guo Group Primary Care Provider [phone] [facility] Unavailable [phone] Reason for Visit and Chief Complaint Established Patient Plan of Treatment Pending Tests Order Diagnosis Results Due Ordering P neha Follow Up - Return to School / Work Note Mohsen Valdez MD Last Documented On 3 8:07AM ; [facility] Follow Up - Appointment PRN Randall' fx left radius, subs for clos fx w routn heal 10/29/22 Mohsen Valdez MD Last Documented On 3 8:07AM ; [facility] Assessments Includes: Assessments from this encounter No Assessments Recorded Medical Equipment - Implanted Devices Includes: Current Devices No Medical Equipment Recorded Medications Includes: Medications discussed during this encounter and other current Medications Current Medications (continue as prescribed) Ibuprofen Oral Tablet 10/29/2022 Provider: Diagnosis: Last Documented On 3 7:58AM By Bhupinder Yadav ; [facility] traMADol HCl 50 MG Oral Tablet 08/13/2022 Provider: Diagnosis: Last Documented On 3 8:16AM By Bhupinder Yadav ; [facility] Medications Administered Includes: Administered Medications from this encounter No Administered Medications Recorded Vital Signs Includes: Vital Signs from this encounter Vital Name 10/29/2022 07:57A Blood Pressure Sitting (mmHg) 118/76 Pulse Rate-Sitting (bpm) 61 Temp-Temporal 97.1 Height (in) 65 Weight (lb) 130 Body Mass Index 21.6 Body Surface Area 1.6 Oxygen Saturation (%) 96 Last Documented: On 10/29/2022 7:58AM ; [facility] Results Includes: Results discussed during this [...] Check-In Time Check-Out Time Diagnosis Established Patient Mohsen Valdez MD [facility] 10/30/19 8:00AM 8:10AM Insurance Includes: Active Insurance Policies Plan Name Member ID Group # Subscriber Relationship Effect enrique Dates 1 - Health Safety Net - [facility] [id number] Myra Jacques Self Clinical Notes Includes: Clinical Notes from this encounter * Progress note Date Encounter Last Documented by 10/29/2022 Established Patient Lalo santana on 10/29/2022; 8:07 AM, Mohsen Valdez MD; [facility] Current Medication - Ibuprofen Oral Tablet 0 days, 0 refills - traMADol HCl 50 MG Oral Tablet 0 days, 0 refills Physical Findings - Vitals taken 10/29/2022 07:57 am BP-Sitting 118/76 mmHg Pulse Rate-Sitting 61 bpm Temp-Temporal 97.1 F Height 65 in Weight 130 lbs Body Mass Index 21.6 kg/m2 Body Surface Area 1.6 m2 Oxygen Saturation 96 % Chief complaint: Follow-up fracture left distal radius History of Present Illness: This is a 42-year-old woman who is status post minimally displaced fracture of her left distal radius in July of this year. She was last seen on 09/24/2022. The cast was removed and she was given a commercial splint. Occupational therapy was ordered. She is still wearing the splint. She did not attend occupational therapy. 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 Physical exam: The left wrist has no swelling or ecchymosis. There is no focal tenderness in the wrist. She has minimal discomfort with wrist motion. Range of motion shows extension 60 degrees, flexion 60 degrees, supination 90 degrees, pronation 90 degrees. Imaging: None today Impression: Fracture left distal radius Plan: The patient may increase her activity to tolerance. She should use the arm is much as comfortable. She may return to full duty work activity. She may return to the office as needed. Plan StartCited - Colles' fx left radius, subs for clos fx w routn heal Follow Up/Appointment: PRN EndCited StartCited - Other Follow Up/Return to: School / Work Note EndCited
--- OUTSIDE RECORDS SUMMARY | 2024-10-03 18:29 | XMS_ITS | Encounter Summary ---
Author Organization [employer] Address [address] [place] [address] Care Team Providers Care Wares Sorter Name Role Phone Scott Sánchez MD Primary Care Prov ider Encounter Details Date Type Department Care Team ([facility] Contact Info) Description 03/27/2024 Orders Only [facility] CHC MED & PEDS [address] [place], [place] [phone] Scott Sánchez MD [address] [place] [address] Social History Tobacco Use Types Packs/Day Years [...] Upcoming Encounters Date Type Department Care Team ([facility] st Contact Info) Description 11/07/2024 11:30 AM EDT Office Visit [facility] MED & PEDS [address] [place] [address] Hill Elise MD [address] [place] [address] documented as of this encounter Visit Diagnoses Not on filedocumented in this encounter Additional Health Concerns Assessment Noted Time PHQ-9 Depression Total Score: 17 024 11:25 AM EST documented as of this encounter Care Teams Wares Sorter Relationship Specialty Start Date End Date Scott Sánchez MD [address] [place] [address] PCP - General Internal Medicine 11/19/19 documented as of this encounter
--- OUTSIDE RECORDS SUMMARY | 2024-10-03 18:29 | XMS_ITS | Encounter Summary ---
Author Organization [employer] Address [address] [place] [address] Care Team Providers Care Ammonia Solution Preparer Name Role Phone Scott Sánchez MD Primary Care Prov ider Reason for Visit * Reason Onset Date Comments callback requested 05/29/2024 Encounter Details Date Type Department Care Team ([facility] st Contact Info) Description 05/29/2024 Telephone [facility] MEDICINE [address] [place] [address] Scott Sánchez MD [address] [place] [address] callback requested Social History Tobacco Use Types Packs/Day Years [...] encounter Miscellaneous Notes * Telephone Encounter - Preet Villarreal - 05/29/2024 9:41 AM EST Tc from pt requesting a callback to r/s a DERM appointment she missed as she informs she forgot. Callback [phone] documented in this encounter Plan of Treatment Upcoming Encounters Date Type Department Care Team (Late st Contact Info) Description 11/07/2024 11:30 AM EDT Office Visit [facility] MED & PEDS [address] [place] [address] Hill Elise MD [address] [place] [address] documented as of this encounter Visit Diagnoses Not on filedocumented in this encounter Additional Health Concerns Assessment Noted Time PHQ-9 Depression Total Score: 17 024 11:25 AM EST documented as of this encounter Care Teams Ammonia Solution Preparer Relationship Specialty Start Date End Date Scott Sánchez MD [address] [place] [address] PCP - General Internal Medicine 11/19/19 documented as of this encounter
--- OUTSIDE RECORDS SUMMARY | 2024-10-03 18:29 | XMS_ITS | Encounter Summary ---
Author Organization [employer] Address [address] [place] [address] Care Team Providers Care Fisher Eel Spear Name Role Phone Scott Sánchez MD Primary Care Prov ider Reason for Visit * Reason Onset Date Comments Med Refill 12/31/2023 Encounter Details Date Type Department Care Team ([facility] st Contact Info) Description 12/31/2023 Telephone [facility] MEDICINE [address] [place] [address] Scott Sánchez MD [address] [place] [address] Med Refill Social History Tobacco Use Types Packs/Day Years [...] encounter Miscellaneous Notes * Telephone Encounter - Anna Godfrey RN - 12/31/2023 2:01 PM EDT Please review and advise if refill for flexeril can be renewed. * Telephone Encounter - Bijan Julien - 12/31/2023 1:16 PM EDT TC from pt requesting medication refill. Medications needing refill: cyclobenzaprine (Flexeril) 10 MG tablet To be sent to: [id number] - [place], [place] - [address] [facility] documented in this encounter Plan of Treatment Upcoming Encounters Date Type Department Care Team (Late st Contact Info) Description 11/07/2024 11:30 AM EDT Office Visit [facility] CHC MED & PEDS [address] [place] [address] Hill Elise MD [address] [place] [address] documented as of this encounter Visit Diagnoses Not on filedocumented in this encounter Additional Health Concerns Assessment Noted Time PHQ-9 Depression Total Score: 17 024 11:25 AM EST documented as of this encounter Care Teams Fisher Eel Spear Relationship Specialty Start Date End Date Scott Sánchez MD [address] [place] [address] PCP - General Internal Medicine 11/19/19 documented as of this encounter
--- OUTSIDE RECORDS SUMMARY | 2024-10-03 18:29 | XMS_ITS | Clinical Summary ---
Author Organization [facility] Address [address] [place] [address] Phone Care Team Providers Care Catering Administrative Assistant Name Role Phone Dayron Guo Primary Care Provider [phone] [facility] Un[facility] [phone] Reason for Visit and Chief Complaint Established Patient Plan of Treatment No Plan of Treatment Recorded Assessments Includes: Assessments from this encounter No Assessments Recorded Medical Equipment - Implanted Devices Includes: Current Devices No Medical Equipment Recorded Medications Includes: Medications discussed during this encounter and other current Medications Current Medications (continue as prescribed) Ibuprofen Oral Tablet 10/29/2022 Provider: Diagnosis: Last Documented On 3 7:58AM By Bhupinder Yadav ; [facility] 50 MG Oral Tablet 08/13/2022 Provider: Diagnosis: Last Documented On 3 8:16AM By Bhupinder Yadav ; [facility] Medications Administered Includes: Administered Medications from this encounter No Administered Medications Recorded Results Includes: Results discussed during this encounter [...] Exam Includes: Physical Exam from this encounter No Physical Exam Recorded Insurance Includes: Active Insurance Policies Plan Name Member ID Group # Subscriber Relationship Effect enrique Dates 1 - [facility] - [facility] [id number] Myra Jacques Self Clinical Notes Includes: Clinical Notes from this encounter No Clinical Notes Recorded
--- OUTSIDE RECORDS SUMMARY | 2024-10-03 18:29 | XMS_ITS | Encounter Summary ---
Author Organization [employer] Address [address] [place] [address] Care Team Providers Care Field Project Manager Name Role Phone Scott Sánchez MD Primary Care Prov ider Reason for Visit * Reason Onset Date Comments Nurse Triage 04/04/2024 Encounter Details Date Type Department Care Team ([facility] st Contact Info) Description 04/04/[address] [facility] CHC MED & PEDS [address] [place] [address] Scott Sánchez MD [address] [place] [address] Nurse Triage Social History Tobacco Use Types [...] * Telephone Encounter - Kasia Gómez - 04/04/2024 12:49 PM EDT Symptom: Back Pain and hip pain - Not From Injury Outcome: Schedule an appointment to be seen within 3 days Reason: Caller denied all higher acuity questions The caller accepted this outcome. documented in this encounter Plan of Treatment Upcoming Encounters Date Type Department Care Team ([facility] st Contact Info) Description 11/07/2024 11:30 AM EDT Office Visit [facility] MED & PEDS [address] [place] [address] Hill Elise MD [address] [place] [address] documented as of this encounter Visit Diagnoses Not on filedocumented in this encounter Additional Health Concerns Assessment Noted Time PHQ-9 Depression Total Score: 17 024 11:25 AM EST documented as of this encounter Care Teams Field Project Manager Relationship Specialty Start Date End Date Scott Sánchez MD [address] [place] [address] PCP - General Internal Medicine 11/19/19 documented as of this encounter
--- OUTSIDE RECORDS SUMMARY | 2024-10-03 18:29 | XMS_ITS ---
Care Plan - [facility] Created on: October 03, 2024 Travis Myra : 1980 Sex: Female Author Organization [facility] Address [address] [place] [address] Phone Care Team Providers Care Slunk Skin Curer Name Role Phone Dayron Guo Primary Care Provider [phone] [facility] Unavailable [phone]
--- OUTSIDE RECORDS SUMMARY | 2024-10-03 18:29 | XMS_ITS | Clinical Summary ---
Author Organization [facility] Address [address] [place] [address] Phone Care Team Providers Care Collateral Specialist Name Role Phone Henna Waldron MD Primary Care Provider Unava ilable Allergies Active Allergy Reactions Criticality Noted Date Comments Penicillins Unknown 04/25/2024 Medications cyclobenzaprine (FLEXERIL) 10 mg tablet Take 1 tablet (10 mg total) by mouth 3 (three) times a day if needed for muscle spasms for up to 7 days. 20 tablet 04/25/2024 Active Active Problems No known active problems Surgical History Surgery Date Site/Laterality Comments OTHER SURGICAL HISTORY PROCEDURE: DENIES PREVIOUS SURGERY Medical History Medical History Date Comments HTN (hypertension) DX:HTN (hyper tension) Anemia, iron deficiency DX:Anemi a, iron deficiency Family History Medical History Relation Name Comments Hypertension Mother arthritis, oste oporosis Relation Name Status Comments Mother Social History Tobacco Use Types Packs/Day Years Used Date Smoking Tobacco: Every Day Cigarettes Alcohol Use Standard Drinks/Week Comments No 0 (1 standard drink = 0.6 oz pur e alcohol) Comments Unknown Sex and Gender Information Value Date Recorded Sex Assigned at Not on file Legal Sex Female 1:10 PM EST Gender Identity Female 04/25/2024 3:15 PM EST Sexual Orientation Not on file Obstetrics History Last Filed Vital Signs Vital Sign Reading Time Taken Comments Blood Pressure 112/81 04/25/2024 5:10 PM EST Pulse 91 04/25/2024 5:10 PM EST Temperature 36.8 ??C (98.2 ??F) 04/25/2024 5:10 PM ES T Respiratory Rate 18 04/25/2024 5:10 PM EST Oxygen Saturation 96% 04/25/2024 5:10 PM EST Inhaled Oxygen Concentration - - Weight 61.2 kg (135 lb) 04/25/2024 2:42 PM EST Height 165.1 cm (5' 5 ) 04/25/2024 2:42 PM EST Body Mass Index 22.47 04/25/2024 2:42 PM EST Plan of Treatment Health Maintenance Due Date Last Done Comments Breast Cancer Screening 1978 Pneumococcal Vaccine: Pediatrics (0 to 5 Years) and At-Risk Patients (6 to 64 Years) (1 of 2 - PCV) 1997 Cervical Cancer Screening: P ap Smear 1999 Colorectal Cancer Screening: Colonoscopy 05/19/2022 Social Influencers of Health Screening 05/19/2022 Hepatitis B Vaccines (3 of 3 - 19+ 3-dose series) 08/01/2022 02/26/2022, 01/29/2022 COVID-19 Vaccine ( - 2023-2 5 season) 2024 09/11/2021, 08/21/2021 Depression Screening 08/23/2024 08/24/2023 Influenza Vaccine (Season Ended) 2025 04/23/2023 Cholesterol Screening (Lipid Panel) 12/24/2026 12/24/2021 DTaP,Tdap,and Td Vaccines (2 - Td or Tdap) 02/16/2031 02/16/2021 HIV Screening Completed 12/24/2021 Hepatitis C Screening Completed 04/18/2024 HIB Vaccines Aged Out No longer eligi ble based on patient's age to complete this topic HPV Vaccines Aged Out No longer eligi ble based on patient's age to complete this topic Hepatitis A Vaccines Aged Out No long er eligible based on patient's age to complete this topic IPV Vaccines Aged Out No longer eligi ble based on patient's age to complete this topic MMR Vaccines Aged Out No longer eligi ble based on patient's age to complete this topic Meningococcal ACWY Vaccine Aged Out N o longer eligible based on patient's age to complete this topic Meningococcal B Vaccine Aged Out No l onger eligible based on patient's age to complete this topic RSV Immunization Patients Under 20 months Aged Out No longer eligible b ased on patient's age to complete this topic Varicella Vaccines Aged Out No longer eligible based on patient's age to complete this topic Insurance MEDICAID - [place] Care Teams Collateral Specialist Relationship Specialty Start Date End Date Henna Waldron MD PCP - General 10/09/10
--- OUTSIDE RECORDS SUMMARY | 2024-10-03 18:29 | XMS_ITS | Encounter Summary ---
Author Organization [employer] Address [address] [facility] [address] [facility] [address] [place] [address] Care Team Providers Care Aquatic Ecologist Name Role Phone Scott Sánchez MD Primary Care Prov ider Reason for Visit * Reason Onset Date Comments Nurse Triage 03/07/2024 Encounter Details Date Type Department Care Team (Late st Contact Info) Description 03/07/[address] [facility] [address] [place] [address] Scott Sánchez MD [address] [place] [address] Nurse Triage Social History Tobacco Use Types [...] Telephone Encounter - Alexandria Carter RN - 03/07/2024 3:33 PM EDT Triage call Pt reports numbness in both hands but, more so on the left side. Pt reports a tingling sensation which has been occurring most of the day. Pt reports this increases with anxiety and Pt issomewhat anxious today due to loss of communication with child. Pt reports can use arms/hands but has to push myself . Pt reports dropping things more often as well but, mobility is maintained. Pt is advised no apts available in [facility] today and would be good to have Provider in [facility] see Pt . Pt agrees to go to [facility] to be seen by provider there. Advised hours open till 8pm. Pt agrees with disposition. Insurance is verified as active . Protocol Used: Neurologic Deficit (Adult) Protocol-Based Disposition: See in Office or Video Visit within 3 Days Positive Triage Question: * Numbness or tingling in one or both hands is a chronic symptom (recurrent or ongoing problem lasting > 4 weeks) * All higher-acuity triage questions were negative Care Advice Discussed: * Reasons To Call Back - Symptoms do not go away within 10 to 15 minutes - You become worse * Telephone Encounter - Brit Connolly - 03/07/2024 3:16 PM EDT Symptoms: Numbness Outcome: Schedule an urgent appointment (within 1 hour) or talk to a nurse or provider soon Reason: Getting worse The caller accepted this outcome. documented in this encounter Plan of Treatment Upcoming Encounters Date Type Department Care Team ([facility] st Contact Info) Description 11/07/2024 11:30 AM EDT Office Visit [facility] [address] [place] [address] Hill Elise MD [address] [place] [address] documented as of this encounter Visit Diagnoses Not on filedocumented in this encounter Additional Health Concerns Assessment Noted Time PHQ-9 Depression Total Score: 17 024 11:25 AM EST documented as of this encounter Care Teams Aquatic Ecologist Relationship Specialty Start Date End Date Scott Sánchez MD [address] [place] [address] PCP - General Internal Medicine 11/19/19 documented as of this encounter
--- OUTSIDE RECORDS SUMMARY | 2024-10-03 18:29 | XMS_ITS | Encounter Summary ---
Author Organization [facility] Address [address] [place] [address] [address] [place] [address] Care Team Providers Care Solar Sales Estimator Name Role Phone Scott Sánchez MD Primary Care Prov ider Encounter Details Date Type Department Care Team (Late st Contact Info) Description 05/18/2022 Abstract [facility] [address] [place], [place] [phone] ProviderEli MD Social History Tobacco Use Types Packs/Day Years Used Date Smoking Tobacco: Never Assessed Comments Unknown Sex and Gender Information Value [...] Description 11/07/2024 11:30 AM EDT Office Visit [facility] [address] [place] [address] Hill Elise MD [address] [place] [address] documented as of this encounter Visit Diagnoses Not on filedocumented in this encounter Care Teams Solar Sales Estimator Relationship Specialty Start Date End Date Scott Sánchez MD [address] [place] [address] PCP - General Internal Medicine 11/19/19 documented as of this encounter
--- OUTSIDE RECORDS SUMMARY | 2024-10-03 18:29 | XMS_ITS | Clinical Summary ---
Author Organization [facility] Address [address] [place] [address] Phone Care Team Providers Care Architectural Sales Consultant Name Role Phone Dayron Guo Primary Care Provider [phone] [facility] Unavailable [phone] Reason for Visit and Chief Complaint New Patient Plan of Treatment Pending Tests Order Diagnosis Results Due Ordering Hernandez solomon Skip Load Driver - Procedures / Orders Cast for short arm Oth fractures of lower end of left radius, init for clos fx 08/13/22 Buffy Wooten PA-C Last Documented On 3 9:04AM ; [facility] - App[facility] 1 Week Oth frac tures of lower end of left radius, init for clos fx 08/13/22 Buffy Wooten PA-C Last Documented On 3 9:04AM ; [facility] Follow Up - Return to School / Work Note Oth fractures of lower end of left radius, init for clos fx 08/13/22 Buffy Wooten PA-C Last Documented On 3 9:07AM ; [facility] Assessments Includes: Assessments from this encounter No Assessments Recorded Medical Equipment - Implanted Devices Includes: Current Devices No Medical Equipment Recorded Medications Includes: Medications discussed during this encounter and other current Medications Current Medications (continue as prescribed) Ibuprofen Oral Tablet 10/29/2022 Provider: Diagnosis: Last Documented On 3 7:58AM By Bhupinder Yadav ; [facility] traMADol HCl 50 MG Oral Tablet 08/13/2022 Provider: Diagnosis: Last Documented On 3 8:16AM By Bhupinder Yadav ; [facility], Medications Administered Includes: Administered Medications from this encounter No Administered Medications Recorded Vital Signs Includes: Vital Signs from this encounter Vital Name 08/13/2022 08:15A Blood Pressure Sitting R 118/66 BP Cuff Size Regular Pulse Rate-Sitting (bpm) 58 Temp-Temporal 97.2 Height (in) 65 Weight (lb) 130 Body Mass Index 21.6 Body Surface Area 1.6 Oxygen Saturation (%) 96 Last Documented: On 08/13/2022 8:16AM ; [facility] Results Includes: Results discussed during this encounter [...] Location Date Check-In Time Check-Out Time Diagnosis New Patient Buffy Wooten PA-C [facility] 3 8:00AM 9:20AM Insurance Includes: Active Insurance Policies Plan Name Member ID Group # Subscriber Relationship Effect enrique Dates 1 - [facility] [id number] Myralorne Jacques Self Clinical Notes Includes: Clinical Notes from this encounter * Progress note Date Encounter Last Documented by 08/13/2022 New Patient Last documented on 08/13/2022; 9:04 AM, Buffy Ramos; [facility] Reason For Visit Chief complaint: Left distal radius fracture Date of injury: 08/10/2022 History of Present Illness: Patient is a pleasant [id number] 42-year-old female who fell onto the dorsal aspect of her wrist while rollerblading. She was evaluated in the emergency room where x-rays were obtained showing a nondisplaced fracture of the distal radius. She was placed in a volar splint and advised to follow-up with orthopedics. She does report numbness and tingling throughout the hand diffusely and states the pain has not subsided. 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 Physical exam: There is no obvious deformity, erythema or ecchymosis noted throughout the wrist. There is moderate swelling. There is exquisite tenderness to palpation throughout the distal radius. Patient is unable to make a fist due to guarding and pain flexing the MCP joints to only about 20 degrees. Motor and sensory intact throughout the radial, ulnar and median nerve distributions although it is noted to be diminished diffusely. Fingertips are warm and well-perfused. Imaging: X-ray of the left wrist reviewed from 08/10/2022 showing a nondisplaced intra-articular fracture of the distal radius Impression: Nondisplaced fracture of the distal radius Plan: - Weightbearing: Strict nonweightbearing left upper extremity - Activity/Therapy: Immobilization, out of work note provided, Caution to avoid reinjury - Dressing/DME: Well-padded short arm cast applied - Pain control: Elevate affected extremity; apply ice to affected area; over the counter pain medication such as Tylenol or NSAID's - Follow up: 1 week for repeat imaging to ensure stability of the fracture - X-ray at follow up: X-ray left wrist in the cast Case discussed with Dr Patterson Physical Findings - Vitals taken 08/13/2022 08:15 am BP-Sitting R 118/66 mmHg BP Cuff Size Regular Pulse Rate-Sitting 58 bpm Temp-Temporal 97.2 F Height 65 in Weight 130 lbs Body Mass Index 21.6 kg/m2 Body Surface Area 1.6 m2 Oxygen Saturation 96 % Plan StartCited - Oth fractures of lower end of left radius, init for clos fx Skip Load Driver/Procedures / Orders: Cast for short arm Follow Up/Appointment: 1 Week EndCited
--- OUTSIDE RECORDS SUMMARY | 2024-10-03 18:29 | XMS_ITS | Clinical Summary ---
Author Organization [employer] Address [address] [facility] [address] [place] [address] Care Team Providers Care Billing Spec Name Role Phone Scott Sánchez MD Primary Care Prov ider Allergies Active Allergy Reactions Criticality Noted Date Comments Penicillin G Rash Low 01/10/2016 Medications cholecalciferol (Vitamin D-3) 50 MCG (1999) tablet Take 1 tablet by mouth at bed time. 022 Active omeprazole (PriLOSEC) [address] capsule Take 1 capsule by mouth at bed time. Take 1 capsule by mouth every day 30 mins to 1 hour before a meal 022 Active naproxen (Naprosyn) 500 MG tabletIndicatio ns:Chronic left-sided low back pain without sciatica Take 1 tablet by mouth every 12 hours for 7 days, then every 12 hours as needed for low back pain. 28 tablet 023 Active cloNIDine (Catapres) 0.1 MG tabletIndicatio ns:Posttraumati c stress disorder Take 1 tablet by mouth twice daily 180 tablet 1 024 Active OLANZapine (ZyPREXA) 15 MG tabletIndicatio ns:Posttraumati c stress disorder Take 1 tablet (15 mg) by mouth at bedtime. 90 tablet 1 024 Active prazosin (Minipress) 5 MG capsuleIndicati ons:Posttraumat ic stress disorder Take 2 capsules (10 mg) by mouth at bedtime. 180 capsule 1 024 Active traZODone (Desyrel) 50 MG tabletIndicatio ns:Posttraumati c stress disorder Take 1 tablet (50 mg) by mouth at bedtime. 90 tablet 1 024 Active propranolol (Inderal) 20 MG tabletIndicatio ns:Migraine without aura and without status migrainosus, not intractable TAKE 1 TABLET(20 MG) BY MOUTH EVERY 8 HOURS 270 tablet 3 024 Active escitalopram (Lexapro) 10 MG tablet Take 10 mg by mouth Once per day. Active hydrOXYzine pamoate (Vistaril) 25 MG capsule Take 25 mg by mouth every 6 (six) hours if needed for itching. Active QUEtiapine (SEROquel) 50 MG tablet Take 50 mg by mouth at bedtime. Active Diclofenac Sodium 1 % gelIndications: Sprain of other ligament of left ankle, initial encounter To apply to the affected area 3 times a day 100 g 024 Active meloxicam (Mobic) 15 MG tablet Take 1 tablet (15 mg) by mouth Once per day. 30 tablet 11 024 2024 Active albuterol (2.5 MG/3ML) 0.083% nebulizer solution Take 3 mL by nebulization every 4 (four) hours. 75 mL 3 025 Active albuterol (ProAir HFA) 108 (90 Base) MCG/ACT inhaler Inhale 2 puffs every 4 (four) hours. Inhale 2 puffs by inhalation route every 4-6 hours as needed 18 g 3 025 Active triamcinolone (Kenalog) 0.1 % ointmentIndicat ions:Lichen planus APPLY TOPICALLY TO THE AFFECTED AREA TWICE DAILY 90 g 025 Active betamethasone dipropionate 0.05 % creamIndication s:Lichen planus Apply topically 2 times daily. 15 g 1 025 Active predniSONE (Deltasone) 20 MG tabletIndicatio ns:Rash Take 1 tablet (20 mg) by mouth 3 times daily for 3 days, THEN 1 tablet (20 mg) 2 times daily for 3 days, THEN 1 tablet (20 mg) Once per day for 3 days. 18 tablet 025 2024 Active cyclobenzaprine (Flexeril) 10 MG tabletIndicatio ns:Chronic left-sided low back pain without sciatica Take 1 tablet (10 mg) by mouth if needed in the morning, at noon, and at bedtime for muscle spasms (muscle spasm) for up to 21 days. 45 tablet 024 2024 Discontinued(M ed list cleanup (will not trigger notification to Pharmacy)) triamcinolone (Kenalog) 0.1 % ointmentIndicat ions:Lichen planus APPLY TOPICALLY TWICE A DAY 30 g 024 2024 Discontinued(R eorder (will not trigger notification to Pharmacy)) triamcinolone (Kenalog) 0.1 % ointmentIndicat ions:Lichen planus APPLY TOPICALLY TWICE A DAY 30 g 025 2024 Discontinued betamethasone dipropionate 0.05 % creamIndication s:Lichen planus Apply topically 2 times daily. 15 g 1 025 2024 Discontinued(R eorder (will not trigger notification to Pharmacy)) triamcinolone (Kenalog) 0.1 % ointmentIndicat ions:Lichen planus APPLY TOPICALLY TO THE AFFECTED AREA TWICE DAILY 30 g 025 2024 Discontinued(R eorder (will not trigger notification to Pharmacy)) predniSONE (Deltasone) 20 MG tabletIndicatio ns:Rash Take 1 tablet (20 mg) by mouth 3 times daily for 3 days, THEN 1 tablet (20 mg) 2 times daily for 3 days, THEN 1 tablet (20 mg) Once per day for 3 days. 18 tablet 025 2024 Discontinued(E ntered in error) Active Problems Problem Noted Date Diagnosed Date Rash 10/03/2024 Assessment & Plan (10/03/2024 3:03 PM EDT): Reoccurring rash since 03/2024. See image in [...] Once per day for 3 days. 10/03/24 Fatigue 12/11/2023 Assessment & Plan (12/11/2023 9:59 AM EDT): It could be related to anxiety, patient will fu with MH team and PCP Will ro electrolyte abn, anemia, hypoglycemia, , check other labs and EKG as she could be having arrhythmias, heart block etc (side effects from neuroleptics?) Recommended rest at home this weekend, cut down working hours up to 6h/d, increase fluid intake. Monitor fever and UTI sxs FU this week Other chest pain 12/11/2023 Assessment & Plan (12/11/2023 9:58 AM EDT): Anxiety? Meds? Order EKG Should go to ED if she develops worsening CP, lateralized weakness, SOB. FU in clinic in 3-4d max Urinary frequency 12/11/2023 Assessment & Plan (12/11/2023 9:59 AM EDT): Order UA. Ro , UTI, hyperglycemia Chronic left-sided low back pain without sciatic a 06/01/2023 Assessment & Plan (11/18/2023 1:56 PM EDT): Will renew cyclobenzaprine, told to rest apply ice/heat pads, follow up with PT Assessment & Plan (06/22/2023 2:26 PM EST): Patient felt moderate improvement in pain with muscle relaxant will rew medication, told to rest apply ice/heat, she will start PT this week, no neurologic deficit/symptoms, follow up if no improvement with PT Chronic upper back pain 06/01/2023 Assessment & Plan (06/01/2023 2:43 PM EST): Will refer to PT for upper and lower back pain Screening for colon cancer 06/01/2023 Assessment & Plan (06/01/2023 2:44 PM EST): Will refer for screening colonoscopy Encounter for screening mamm ogram for malignant neoplasm of breast 06/01/2023 Assessment & Plan (06/01/2023 2:44 PM EST): Will order mammogram Muscle spasm 05/29/2022 Assessment & Plan (06/01/2023 2:42 PM EST): Will renew cyclobenzaprine, told to stretch 2-3 time a day Assessment & Plan (05/29/2022 2:29 PM EST): Will refill cyclobenzaprine, continue stretching exercises Migraine without aura and wi thout status migrainosus, not intractable 05/29/2022 Assessment & Plan (10/01/2022 2:41 PM EDT): Controlled on propanolol daily and naproxen for rescue, no changes will be made Assessment & Plan (05/29/2022 2:29 PM EST): Will refill propanol Bilateral carpal tunnel syndrome 05/29/2022 Assessment & Plan (05/29/2022 2:29 PM EST): referal was placed on last visit but patient does not want to go to [place], will place new referal Posttraumatic stress disorder 07/11/2015 Assessment & Plan (11/18/2023 1:57 PM EDT): Followed by therapist and psych from [facility], denied active suicidal/homicidal ideas, refers being stable mentally Assessment & Plan (08/24/2023 12:35 PM EST): Had been doing very well with medications, which were continued during incarceration but which she has since been taking only prn. Will resume regimen: Venlafaxine 75 mg daily, Zyprexa 15 mg at bedtime, Trazodone 50 mg at bedtime, Prazosin 5 mg 2 tabs (total dose 10 mg) at bedtime, Clonidine 0.1 mg BID not prn. Continue Hydroxyzine 25 mg to take 1-2 tabs at bedtime and prn panic attacks. F/U with therapist as usual. She has also been referred to agency psychiatrist. We will schedule F/U with me in 1 month, but that will be canceled if she is able to see new prescriber meanwhile She agrees with the plan. Assessment & Plan (10/06/2022 2:59 PM EDT): Improved. Will now increase to Venlafaxine 75 mg daily. Continue Zyprexa 15 mg at bedtime, Trazodone 50 mg at bedtime, Prazosin 5 mg 2 tabs (total dose 10 mg) at bedtime, Clonidine 0.1 mg BID not prn. Continue Hydroxyzine 25 mg to take 1-2 tabs at bedtime and prn panic attacks. F/U with therapist as usual. F/U with me in 1 month. She agrees with the plan. Assessment & Plan (09/07/2022 2:29 PM EDT): Anxiety, distractability, racing thoughts, and poor sleep persist, although mood swings and hallucinations improved. Discussed increasing Zyprexa again vs. Adding anxiolytic antidepressant Venlafaxine. Pt would like to try the Venlafaxine and will have Venlafaxine ER 75 mg once daily with food. Continue other medications: Zyprexa 15 mg at bedtime, Trazodone 50 mg at bedtime, Prazosin 5 mg 2 tabs (total dose 10 mg) at bedtime, Clonidine 0.1 mg BID not prn. Continue Hydroxyzine 25 mg to take 1-2 tabs at bedtime and prn panic attacks. Recommend keeping the TV off r/t blue light and instead radio or music . F/U with therapist as usual. F/U with me in 3-4 weeks. She agrees with the plan. Assessment & Plan (08/17/2022 3:27 PM EST): Anxiety, distractability, and poor sleep persist, although mood swings and hallucinations improved. Will increase to Zyprexa 15 mg at bedtime. Continue Prazosin 5 mg 2 tabs (total dose 10 mg) at bedtime, Clonidine 0.1 mg BID not prn. Continue Hydroxyzine 25 mg to take 1-2 tabs at bedtime and prn panic attacks. . F/U with therapist as usual. F/U with me in 3-4 weeks. She agrees with the plan. Assessment & Plan (07/27/2022 3:25 PM EST): Markedly increased mood swings and irritability, flashbacks, nightmares. Mood-congruent hallucinations: Door knocking, shadows. Endorses recent retriggering events. Working with therapist. Will stop Seroquel. Will start Zyprexa 10 mg at bedtime. Continue Prazosin 5 mg 2 tabs (total dose 10 mg) at bedtime, do take the Clonidine 0.1 mg BID not prn. Continue Hydroxyzine 25 mg to take 1-2 tabs at bedtime and prn panic attacks. . F/U with therapist as usual. F/U with me in 2-3 weeks. She agrees with the plan. Encounters Date Type Department Care Team Description 10/03/2024 2:40 PM EDT Office Visit [facility] [address] [place] [phone] Kayla Hogan MD Rash (Primary Dx) 09/20/2024 Refill [facility] [address] [place] [address] Nyasia Hayward FNP Lichen planus 09/18/2024 Telephone [facility] [address] [place] [address] Scott Sánchez MD Medication Question 09/18/2024 Orders Only [facility] [address] [place] [address] Scott Sánchez MD Lichen planus 09/15/2024 Telephone [facility] [address] [place] [address] Sctot Sánchez MD 09/12/2024 Refill [facility] [address] [place] [phone] Scott Sánchez MD Lichen planus 09/06/2024 2:00 PM EDT Office Visit [facility] [address] [place] [address] 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, 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, 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 Lichen planus (Primary Dx) 09/06/2024 Travel 09/05/2024 Refill [facility] [address] [place], [place] [phone] Scott Sánchez MD Lichen planus 09/01/2024 Population Health Risk Score [facility] [address] [place] [phone] Provider, Population Health Generic 08/15/2024 Refill [facility] [address] [place] [address] Scott Sánchez MD 08/14/2024 Telephone [facility] [address] [place], [place] [phone] Scott Sánchez MD from Last 3 Months Immunizations Name Administration Dates Next Due Hep B, adult 02/26/2022,01/29/2022 Pfizer Covid-19 Vaccine 12+ 08/21/2021 Pfizer Covid-19 Vaccine 12+ vincenzo-sucrose (Doyle Ramos ap) 08/21/2021 Tdap 02/16/2021 Family History Medical History Relation Name Comments Asperger's syndrome Daughter Seizures Daughter Relation Name Status Comments Daughter Social History Tobacco Use Types Packs/Day Years Used Date Smoking Tobacco: Every Day Cigarettes 0.5 25 Passive Smoke Exposure: Current Smokeless Tobacco: Never Tobacco Cessation:Ready to Q uit: Not Asked; Counseling Given: Not Answered Alcohol Use Standard Drinks/Week Comments Not Currently [...] Orientation Straight 04/20/2022 10 :29 AM EDT Last Filed Vital Signs Vital Sign Reading [...] Mass Index 24 10/03/2024 2:48 PM EDT Plan of Treatment Upcoming Encounters Date Type Department Care Team (Late st Contact Info) Description 11/07/2024 11:30 AM EDT Office Visit [facility] [address] [place] [address] Hill Elise MD [address] [place] [address] Health Maintenance Due Date Last Done Comments CT Colonography 1978 Colonoscopy 1978 Colorectal Cancer Screening 1978 FIT DNA/Cologuard 1978 FIT 1978 FOBT 1978 Sigmoidoscopy 1978 Alcohol/Substance Use Screening 1990 Family Planning (PISQ) 1993 Pneumococcal Vaccine: Pediatrics (0 to 5 Years) and At-Risk Patients (6 to 49) Years) (1 of 2 - PCV) 1997 Hepatitis B Vaccines (3 of 3 - 19+ 3-dose series) 08/01/2022 02/26/2022, 01/29/2022 SDOH Screening 10/02/2023 10/01/2022 Mammogram 12/30/2023 12/29/2021 COVID-19 Vaccine (2023-2 5 season) 2024 09/11/2021, 08/21/2021, 08/21/2021 Influenza Vaccine (#1) 2024 04/23/2023 Depression Monitoring 02/24/2024 08/24/2023 , 08/24/2023 Depression Screening 08/23/2024 08/24/2023, 08/24/2023 Tobacco Screening 10/03/2025 10/03/2024 Cervical Cancer Screening 12/11/2026 HPV/Cotest 12/11/2026 12/11/2021 Pap Smear 12/11/2026 12/11/2021 Lipid Panel 12/24/2026 12/24/2021 Zoster Vaccines (1 of 2) 2028 DTaP/Tdap/Td Vaccines (2 - T d or Tdap) 02/16/2031 02/16/2021 RSV Patients and Patients Aged 60 years or older (1 - 1-dose 75+ series) 2053 HIV Screening Completed 12/24/2021 Hepatitis C Screening Completed 04/18/2024 , 12/24/2021 HIB Vaccines Aged Out No longer eligi [...] patient's age to complete this topic Meningococcal Vaccine Aged Out No whitney tyrese eligible based on patient's age to complete this topic RSV under 20 months Aged Out No longe r eligible based on patient's age to complete this topic Rotavirus Vaccines Aged Out No longer eligible based on patient's age to complete this topic Procedures Procedure Name Priority Date/Time Associated Diagnosis Comments RHEUMATOID FACTOR Routine 10/03/2024 3:1 3 PM EDT Rash HEMOGLOBIN A1C Routine 10/03/2024 3:13 PM EDT Fatigue, unspecified type Other chest pain Urinary frequency HCG, TOTAL, QN Routine 10/03/2024 3:13 PM EDT Fatigue, unspecified type Urinary frequency URINALYSIS, COMPLETE, WITH REFLEX TO CULTURE Routine 10/03/2024 3:13 PM EDT Urinary frequency MAGNESIUM Routine 10/03/2024 3:13 PM EDT Fatigue, unspecified type PHOSPHATE ( PHOSPHORUS) Routine 10/03/2024 3:13 PM EDT Fatigue, unspecified type Other chest pain TSH W/REFLEX TO FT4 Routine 10/03/2024 3 :13 PM EDT Fatigue, unspecified type CBC WITH AUTO DIFFERENTIAL Routine 10/03/2024 3:13 PM EDT Fatigue, unspecified type BASIC METABOLIC PANEL Routine 10/03/2024 3:13 PM EDT Fatigue, unspecified type HEPATITIS C AB W/REFL TO HCV RNA, QN, PCR Routine 04/18/2024 2:55 PM EDT Lichen planus HM MAMMOGRAPHY Routine 12/29/2021 HIV 1/2 ANTIGEN/ANTIBODY, FOURTH GENERATION W/RFL Routine 12/24/2021 11:19 AM EDT LIPID PANEL, STANDARD Routine 12/24/2021 11:19 AM EDT HM PAP/HPV Routine 12/11/2021 from Last 3 Months or Most Recently Relevant to Health Maintenance Results * Urinalysis, Complete, with Reflex to Culture (10/03/2024 3:13 PM EDT) Color Urine Yellow [facility] Appearance Urine Clear [facility] PH 6.0 5.0 - 9.0 [facility] Glucose Urine UA Negative Negative mg/dL [facility] Urine Blood Negative Negative [facility] Specific [place] - Urine 1.015 1.005 - 1.025 [facility] Urine Protein Negative Neg-Trace mg/dL [facility] Urine Ketones Negative Negative mg/dL [facility] Nitrite Urine Negative Negative [facility] Leukocyte Esterase Urine Negative Negative [facility] RBC Urine 0-2 0 - 2 /HPF [facility] Urine WBC 0-5 0 - 5 /HPF [facility] Urine Squamous Epithelial Cell 0-2 0 - 2 /HPF [facility] Urine Bacteria None Seen None Seen [facility] Hyaline Casts, Urine 0-2 0 - 2 /LPF [facility] Urine 10/03/2024 3:13 PM EDT 10/03/2024 4:02 PM EDT Narrative [facility] - 10/03/2024 4:13 PM EDT Urine, Clean Catch us Margo Tellez MD LAB URINE ORDERABLES Fin al Result [facility] [address] [place] [phone] * TSH with Reflex to Free T4 (10/03/2024 3:13 PM EDT) TSH reflex Free T4 1.13 0.32 - 4.0 uIU/mL [facility] Blood 10/03/2024 3:13 PM EDT 10/03/2024 4:04 PM EDT us Margo Tellez MD LAB BLOOD ORDERABLES Fin al Result [facility] [address] [place], [place] [phone] * (ABNORMAL) CBC auto differential (10/03/2024 3:13 PM EDT) White Blood Count 5.2 4.8 - 10.8 X10*3/uL [facility] Red Blood Count 3.83(L) 4.20 - 5.50 X10*6/uL [facility] Hemoglobin 10.8(L) 12.0 - 16.0 g/dl [facility] Hematocrit 32.7(L) 37.0 - 47.0 % [facility] Mean Corpuscular Volume 85.4 80.0 - 98.0 fL [facility] Mean Corpuscular Hemoglobin 28.2 27.0 - 33.0 pg [facility] Mean Corpuscular HGB Conc 33.0 31.0 - 35.0 g/dl [facility] Red Cell Distribution Width 13.2 11.0 - 16.0 % [facility] Platelet Count 353 160 - 400 X10*3/uL [facility] Mean Platelet Volume 9.9 9.4 - 12.3 fL [facility] Neutrophils Percent Auto 53.6 45 - 73 % [facility] Imm Gran Pct Auto 0.4 0.0 - 0.4 % [facility] Lymphocytes Percent Auto 33.6 20 - 40 % [facility] Monocytes Percent Auto 6.4 2 - 11 % [facility] Eosinophils Percent Auto 4.1(H) 0 - 4 % [facility] Basophils Percent Auto 1.9 0 - 2 % [facility] NRBC Pct Auto 0.0 0.0 - 0.2 /100WBC [facility] Neutrophils Absolute Auto 2.8 2.0 - 8.3 x10*3/uL [facility] Imm Gran Abs Auto 0.02 0.00 - 0.03 X10*3/uL [facility] Lymphocytes Absolute Auto 1.7 1.2 - 4.9 X10*3/uL [facility] Monocytes Absolute Auto 0.3 0.1 - 1.2 X10*3/uL [facility] Eosinophils Absolute Auto 0.2 0.0 - 0.4 X10*3/uL [facility] Basophils Absolute Auto 0.1 0.0 - 0.2 X10*3/uL [facility] NRBC Abs Auto 0.000 0.0 - 0.012 X10*3/uL [facility] Blood Venous blood specimen / Unknown 10/03/2024 3:13 PM EDT 10/03/2024 4:04 PM EDT Margo Tellez MD LAB BLOOD ORDERABLES Fin al Result [facility] [address] [place] [phone] * Rheumatoid Factor (10/03/2024 3:13 PM EDT) Rheumatoid Factor <13.0 <15.0 IU/mL [facility] Blood Venous blood specimen / Unknown 10/03/2024 3:13 PM EDT 10/03/2024 4:04 PM EDT us Kayla Hogan MD LAB BLOOD ORDERABLES Final Result Performing Organization Address City/[facility]/ZIP Co de Phone Number [facility] [address] [place] [phone] * hCG, Total, Quantitative (10/03/2024 3:13 PM EDT) HCG Quantitative <2 mIU/mL [facility] Comment:Weeks post LMP Appro ximate hCG(Last Menstrual Period) Range (mIU/ml)3 - 4 weeks 9 - 1304 - 5 weeks 75 - 2,6005 - 6 weeks 850 - 20,8006 - 7 weeks 4000 - 100,2007 - 12 weeks 11,500 - 289,99476 - 16 weeks 18,300 - 137,92790 - 29 weeks (2nd trimester) 1,400 - 53,57999 - 41 weeks (3rd trimester) 940 - 60,000The [place] B- hCG assay is used for the early detection ofpregnancy; it cannot be used to diagnose any conditionunrelated to . If a B-hCG level is not supportedby the clinical evidence, results should be confirmed by analternative method (qualitative urine hCG, for example). Blood Venous blood specimen / Unknown 10/03/2024 3:13 PM EDT 10/03/2024 4:04 PM EDT Margo Tellez MD LAB BLOOD ORDERABLES Fin al Result Performing Organization Address [facility] Co de Phone Number [facility] [address] [place] [address] [phone] * Phosphate (As Phosphorus) (10/03/2024 3:13 PM EDT) Phosphorus 3.0 2.7 - 4.5 mg/dL [facility] Blood Venous blood specimen / Unknown 10/03/2024 3:13 PM EDT 10/03/2024 4:04 PM EDT Margo Tellez MD LAB BLOOD ORDERABLES Fin al Result Performing Organization Address [facility] Co de Phone Number [facility] [address] [place] [address] [phone] * Magnesium (10/03/2024 3:13 PM EDT) Magnesium 2.0 1.6 - 2.6 mg/dL [facility] Blood Venous blood specimen / Unknown 10/03/2024 3:13 PM EDT 10/03/2024 4:04 PM EDT Margo Tellez MD LAB BLOOD ORDERABLES Fin al Result Performing Organization Address [facility] Co de Phone Number [facility] [address] [place] [address] [phone] * Hemoglobin A1c (10/03/2024 3:13 PM EDT) Hemoglobin A1c 5.2 <6.0 % [facility] Comment:Hemoglobin A1C Refer ence Range Adults: 4.8 - 6.0 % Non diabetic: < 6.0 % Goal: < 7.0 %Additional Action Suggested: > 8.0 %Note: Hemoglobin A1c results are invalid for patients with abnormal amounts of HbF. Blood transfusions may impact the HbA1c concentration in the patient sample. Estimated Average Glucose 103 mg/dL [facility] Comment:eAG = Estimated ave rage glucose which is %A1C expressed asaverage glucose, using the formula of the [id number] Glucose study (ADAG), Diabetes Care, Vol.31,#8,Jan. 2007 Blood Venous blood specimen / Unknown 10/03/2024 3:13 PM EDT 10/03/2024 4:04 PM EDT us Margo Tellez MD LAB BLOOD ORDERABLES Fin al Result [facility] [address] [place] [phone] * (ABNORMAL) Basic Metabolic Panel (10/03/2024 3:13 PM EDT) Sodium 139 135 - 145 mmol/L [facility] Potassium 3.8 3.3 - 5.1 mmol/L [facility] Chloride 110(H) 96 - 108 mmol/L [facility] Carbon Dioxide 23 22 - 29 mmol/L [facility] Anion Gap 10(L) 12 - 20 [facility] Urea Nitrogen (BUN) 14 9 - 16 mg/dL [facility] Creatinine, Serum 1.07 0.5 - 1.4 mg/dL [facility] Estimated Glomerular Filt Rate 55 [facility] Comment:Chronic Kidney Disea se: Estimated GFR < 60 mL/min/[id number] Kidney Disease: Estimated GFR < 15 mL/min/1.73m2 Glucose 89 60 - 115 mg/dL [facility] Calcium 8.5 8.4 - 10.2 mg/dL [facility] Blood Venous blood specimen / Unknown 10/03/2024 3:13 PM EDT 10/03/2024 4:04 PM EDT Margo Tellez MD LAB BLOOD ORDERABLES Fin al Result Performing Organization Address [facility]/ZIP Co de Phone Number [facility] [address] [place] [phone] * Hepatitis C Antibody with Reflex to HCV, RNA, Quantitative, Real-Time PCR (04/18/2024 2:55 PM EDT) Hepatitis C Antibody Nonreactive Nonreactive [facility] Comment:Antibodies to HCV no t detected; does not exclude early acuteHCV infection. Blood Venous blood specimen / Unknown 04/18/2024 2:55 PM EDT 04/18/2024 5:56 PM EDT Hill Elise MD LAB BLOOD ORDERABLES Final Result Performing Organization Address [facility] Co de Phone Number [facility] [address] [place] [address] [phone] * Mammography (12/29/2021) Mammogram [id number] Anatomical Region Laterality Modality Other Historical Provider HEALTH MAINTENANCE Final Result * HIV 1/2 ANTIGEN/ANTIBODY,FOURTH GENERATION W/RFL (12/24/2021 11:19 AM EDT) HIV-1/2 ANTIGEN AND ANTIBODIES, 4TH GENERATION W/ REFLEX NON-REACT CORI NON-REACT CORI TRINITY [facility] Comment: HIV-1 antigen and HIV-1/HIV-2 antibodies were not detected. There is no laboratory evidence of HIV infection. ?? PLEASE NOTE: This information has been disclosed to you from records whose confidentiality may be protected by state law. ??If your state requires such protection, then the state law prohibits you from making any further disclosure of the information without the specific written consent of the person to whom it pertains, or as otherwise permitted by law. A general authorization for the release of medical or other information is NOT sufficient for this purpose. ? For additional information please refer to http://Cloze.Gecko Audio/faq/KLS870 (This link is being provided for informational/ educational purposes only.) ? The performance of this assay has not been clinically validated in patients less than 2 years old. ?? 12/24/2021 11:1 9 AM EDT us Zora Ryan MD LAB BLOOD ORDERABLES Final Re sult [facility] [address] * (ABNORMAL) LIPID PANEL, STANDARD (12/24/2021 11:19 AM EDT) Chol/HDLC Ratio 5.1(H) <5.0 (calc) [facility] Cholesterol, Total 215(H) <200 mg/dL [facility] HDL Cholesterol 42(L) > OR = 50 mg/dL [facility] LDL Cholesterol 141(H) mg/dL (calc) [facility] Comment: Reference range: <100 ?? Desirable range <100 mg/dL for primary prevention; ?? <70 mg/dL for patients with CHD or diabetic patients ?? with > or = 2 CHD risk factors. ?? LDL-C is now calculated using the Samira ?? calculation, which is a validated novel method providing ?? better accuracy than the Friedewald equation in the ?? estimation of LDL-C. ?? Hiren RAE et al. TAWANDA. 2013;310(19): 6545-4885 ?? (http://education.Algolux/faq/ABZ181) Non-HDL Cholesterol 173(H) <130 mg/dL (calc) [facility] Comment: For patients with diabetes plus 1 major ASCVD risk ?? factor, treating to a non-HDL-C goal of <100 mg/dL ?? (LDL-C of <70 mg/dL) is considered a therapeutic ?? option. Triglycerides 186(H) <150 mg/dL [facility] 12/24/2021 11:1 9 AM EDT Zora Ryan MD LAB BLOOD ORDERABLES Final Re sult [facility] [address] * Pap Smear (12/11/2021) Pap Negative for intraephithelial lesion or malignancy Negative for intraephithelial lesion or malignancy, Other HPV Undetected Undetected, Indeterminate, Quantitative, Not Detected Historical Provider HEALTH MAINTENANCE Final Result from Last 3 Months or Most Recently Relevant to Health Maintenance Insurance [facility] C3 Care Teams Billing Spec Relationship Specialty Start Date End Date RosalesScott Mcneil MD [address] [place] [address] TIMMY Ojeda [id number] PCP - General Internal Medicine 11/19/19
--- OUTSIDE RECORDS SUMMARY | 2024-10-03 18:29 | XMS_ITS | Encounter Summary ---
Author Organization [employer] Address [address] 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 Name Role Phone Scott Sánchez MD Primary Care Prov ider Reason for Visit * Reason Onset Date Comments Nurse Triage 06/22/2023 Encounter Details Date Type Department Care Team ([facility] st Contact Info) Description 06/22/2023 Telephone [facility] [address] [place] [address] Scott Sánchez MD [address] [place] [address] Nurse Triage Social History Tobacco Use Types Packs/Day Years Used Date Smoking Tobacco: Every Day Cigarettes 0.5 25 Passive Smoke Exposure: Current Smokeless Tobacco: Never Alcohol Use Standard Drinks/Week Comments Not Currently 0 (1 standard drink = 0.6 oz pur e alcohol) Depression Answer Date Recorded Patient Health Questionnaire-9 Score 9 10/06/2022 Housing Stability Answer Date Recorded What is [...] Answer Date Recorded Patient Health Questionnaire-2 Score 3 10/06/2022 Comments Unknown Sex and Gender Information Value Date Recorded Sex Assigned at Female 04/20/2022 10:29 AM EDT Legal Sex Female 10:29 AM EDT Gender Identity Female 04/20/2022 10:29 AM EDT Sexual Orientation Straight 04/20/2022 10 :29 AM EDT documented as of this encounter Miscellaneous Notes * Telephone Encounter - Alexandria Carter RN - 06/22/2023 10:15 AM EST Triage call Pt is at work at time of call. Pt reports low back pain which is of chronic nature but,it is worse. Pt was seen by PCP 06/01/23 in office visit and flexeril was ordered. Pt reports the muscle relaxer didn't help at all. Pt did get apt for PT which will start tomorrow. Pt is requesting to speak with PCP regarding flexeril. Tele visit with PCP today at 130pm. Pt is advised to be ready for registration call. Pt is also given home care advice which Pt reports is already following. Protocol Used: Back Pain (Adult) Protocol-Based Disposition: See in Office or Video Visit within 3 Days Video visit offered and caller accepted Positive Triage Question: * Moderate back pain (e.g., interferes with normal activities) and present > 3 days * All higher-acuity triage questions were negative Care Advice Discussed: * Reassurance and Education - Back Pain * Cold or Heat * Sleep * Activity * Pain Medicines * Pain Medicines - Extra Notes and Warnings * Reasons To Call Back - Fever occurs - Numbness or weakness occurs, or bowel/bladder problems - Pain begins to shoot into the leg - Pain persists over 2 weeks - Pain becomes worse - You become worse * Telephone Encounter - Brit Connolly - 06/22/2023 8:56 AM EST Symptoms: Back Pain - Not From Injury, Pain - Severe Outcome: Schedule an urgent appointment (within 1 hour) or talk to a nurse or provider soon Reason: Caller denied all higher acuity questions The caller accepted this outcome Please contact pt @ [phone] documented in this encounter Plan of Treatment Upcoming Encounters Date Type Department Care Team (Late st Contact Info) Description 11/07/2024 11:30 AM EDT Office Visit [facility] [address] [place] [address] Hill Elise MD [address] [place] [address] documented as of this encounter Visit Diagnoses Not on filedocumented in this encounter Additional Health Concerns Assessment Noted Time PHQ-9 Depression Total Score: 9 10/07/19 23 1:59 PM EDT documented as of this encounter Care Teams Nuisance Wildlife Control Operator Relationship Specialty Start Date End Date Scott Sánchez MD [address] [place] [address] PCP - General Internal Medicine 11/19/19 documented as of this encounter
[2024-10-04 07:58] LABS: HIV AB/AG Nonreactive (Nonreactive); HIV Num 1 0.05 S/CO (0.00-0.99)
[2024-10-04 12:08] LABS: RPR Rapid Plasma Reagin NON-REACTIVE (NON-REACTIVE)
[2024-10-06 15:39] LABS: Anti Nuclear Antibody Screen NEGATIVE (NEGATIVE)
== END 2024-10-03 15:10 | disposition home or self-care (01) ==
LOC: HO.HHCL 15:09
PROVIDERS: Internal Medicine; Visit Provider Family Medicine
DX: R21 Rash and other nonspecific skin eruption (principal); R53.83 Other fatigue; R35.0 Frequency of micturition; R07.89 Other chest pain
CPT/HCPCS: 36415; 80048; 81001; 83036; 83735; 84100; 84443; 84702; 85025; 86038; 86431; 86592; 87389